=== PATIENT | female | born 1985 ===

== ENCOUNTER 2024-06-09 06:56 | Inpatient (IN) | payer MEDICAID ==
[~2024-06-09 06:56] MED LIST: Bupivacaine 0.25% 10 ML SDV ONE
[2024-06-09] MEDS ORDERED: Lidocaine 1% 50 ML MDV INJECT PRN (07:38)
[2024-06-09] MEDS ORDERED: Nalbuphine 10 MG/1 ML Vial IVPUSH PRN (07:38)
[2024-06-09] MEDS ORDERED: Calcium Carbonate 500 MG Tab.Chew PO PRN (07:38)
[2024-06-09] MEDS ORDERED: Sodium Chloride 0.9% 10 ML Syringe FLUSH PRN (07:38)
[2024-06-09 08:44] LABS: BASOPHILS PERCENT AUTO 0.3 % (0.0-1.0); EOSINOPHILS ABSOLUTE AUTO 0.2 K/mm3 (0.0-0.4); HEMATOCRIT 36.3 % (37.0-47.0); HEMOGLOBIN 12.3 gm/dl (12.0-16.0); IMMATURE GRAN ABSOLUTE AUTO 0.06 K/mm3 (0.00-0.05); IMMATURE GRAN PERCENT AUTO 0.5 % (0.0-0.4); LYMPHOCYTES ABSOLUTE AUTO 1.6 K/mm3 (1.0-4.8); LYMPHOCYTES PERCENT AUTO 14.3 % (24.0-44.0); MEAN CORPUSCULAR HEMOGLOBIN 29.3 pg (28.0-32.0); MEAN CORPUSCULAR HGB CONC 33.9 g/dl (32.0-36.0); MEAN CORPUSCULAR VOLUME 86.4 fl (83.0-99.0); MEAN PLATELET VOLUME 12.8 fl (9.4-12.3); MONOCYTES ABSOLUTE AUTO 0.7 K/mm3 (0.0-0.8); MONOCYTES PERCENT AUTO 6.4 % (0.0-8.0); NEUTROPHILS ABSOLUTE AUTO 8.6 K/mm3 (1.8-7.7); NEUTROPHILS PERCENT AUTO 76.5 % (41.0-71.0); PLATELET COUNT,PLT 153 K/mm3 (150-400); WHITE BLOOD CELL COUNT,WBC 11.27 K/mm3 (3.9-11.3)
[2024-06-09] MEDS: Lactated Ringers 1,000 ML IV SCH (08:56)
[2024-06-09] MEDS: Oxytocin/0.9 % Sodium Chloride 30 UNIT/500 ML BAG IV SCH (09:01)
[2024-06-09] MEDS ORDERED: ePHEDrine 50 MG/ML SDV IVPUSH PRN (14:34)
[2024-06-09] MEDS ORDERED: diphenhydrAMINE 50 MG/ML SDV IVPUSH PRN (14:34)
[2024-06-09] MEDS: fentaNYL 100 MCG/2 ML SDV EPIDUR PRN (18:50)
[2024-06-09] MEDS: Bupivacaine/fentaNYL/NS 100 ML Bag EPIDUR PRN (18:51)
[2024-06-09] MEDS: Ondansetron 4 MG/2 ML SDV IVPUSH PRN (20:12)
[2024-06-10] MEDS: Acetaminophen 325 MG Tab PO PRN (02:47)
[2024-06-10] MEDS: Oxytocin/0.9 % Sodium Chloride 30 UNIT/500 ML BAG IV SCH (17:53)
[2024-06-10] MEDS: ceFAZolin 2 GM in Sodium Chloride 0.9% 50 ML IV ONE (19:23)
[2024-06-10] MEDS ORDERED: Docusate Sodium 100 MG Cap PO PRN (19:30)
[2024-06-10] MEDS ORDERED: Acetaminophen 325 MG Tab PO PRN (19:30)
[2024-06-10] MEDS ORDERED: Oxytocin/0.9 % Sodium Chloride 30 UNIT/500 ML BAG IV SCH (19:30)
[2024-06-10] MEDS ORDERED: Simethicone 80 MG Tab.Chew PO PRN (19:30)
[2024-06-10] MEDS ORDERED: Magnesium Hydroxide 400 MG/5 ML Susp 30 ML Cup PO PRN (19:30)
[2024-06-10] MEDS ORDERED: Hydrocortisone Acetate 25 MG Supp RECTAL PRN (19:30)
[2024-06-10] MEDS: Ibuprofen 600 MG Tab PO SCH (19:58)
[2024-06-10] MEDS: Witch Hazel Medicated Pads 40/Jar TOP PRN (19:59)
[2024-06-10] MEDS: Benzocaine/Menthol 20%-0.5% Spray 78 GM Cannister TOP PRN (19:59)
[2024-06-11] MEDS: Prenatal Multivitamin with Calcium/Folic Acid/Iron Tab PO SCH (08:17)
== END 2024-06-11 20:20 | disposition home or self-care (01) | DRG 807 ==
LOC: JD.OB 06:56 → OBSVTOIN 06-10 17:52 → JD.OB 06-10 17:53
PROVIDERS: ADMIT Obstetrics & Gynecology; ATTEND Obstetrics & Gynecology
PROC: 10E0XZZ Delivery of Products of Conception, External Approach (ICD-10-PCS; principal; 2024-06-10)
PROC: 10D17Z9 Manual Extraction of Products of Conception, Retained, Via Natural or Artificial Opening (ICD-10-PCS; 2024-06-10)
PROC: 0U7C7ZZ Dilation of Cervix, Via Natural or Artificial Opening (ICD-10-PCS; 2024-06-10)
PROC: 10907ZC Drainage of Amniotic Fluid, Therapeutic from Products of Conception, Via Natural or Artificial Opening (ICD-10-PCS; 2024-06-10)
PROC: 3E0P7VZ Introduction of Hormone into Female Reproductive, Via Natural or Artificial Opening (ICD-10-PCS; 2024-06-10)
PROC: 0HQ9XZZ Repair Perineum Skin, External Approach (ICD-10-PCS; 2024-06-10)
PROC: 3E0R3BZ Introduction of Anesthetic Agent into Spinal Canal, Percutaneous Approach (ICD-10-PCS; 2024-06-10)
PROC: 00HU33Z Insertion of Infusion Device into Spinal Canal, Percutaneous Approach (ICD-10-PCS; 2024-06-10)
DX: O24.420 Gestational diabetes mellitus in childbirth, diet controlled (principal); Z37.0 Single live birth; O99.52 Diseases of the respiratory system complicating childbirth; J45.909 Unspecified asthma, uncomplicated; O73.1 Retained portions of placenta and membranes, without hemorrhage; O70.0 First degree perineal laceration during delivery; Z3A.39 39 weeks gestation of pregnancy; Z90.89 Acquired absence of other organs; Z90.49 Acquired absence of other specified parts of digestive tract
CPT/HCPCS: 36415; 51702; 59025; 59409; 82947; 85025; 86592; 86850; 86900; 86901; A9270-GY; C1726; J0665; J0690; J2405; J3010; J3490; J7120; J7999